=== PATIENT | female | born 1955 | race Caucasian/White ===

== ENCOUNTER 2023-06-04 08:00 | Outpatient (CLI) | payer MEDICARE, OTHER | END 2023-06-04 23:59 | disposition home or self-care (01) | LOC: LAB.N 08:00 | PROVIDERS: ATTEND Family Medicine | DX: J20.9 Acute bronchitis, unspecified (principal) ==

== ENCOUNTER 2023-06-04 08:45 | Outpatient (CLI) | payer MEDICARE, OTHER ==
--- NOTE | 2023-06-04 10:29 | XRAY Report ---
PROCEDURE: Chest 2 View X-Ray INDICATIONS: ACUTE BRONCHITIS TECHNIQUE: 2 views of the chest were acquired. COMPARISON: None. FINDINGS: Surgical changes and devices: Cervical fusion hardware, reversed left shoulder arthroplasty, lumbar fusion hardware. Lungs and pleura: No pleural effusions or pneumothorax. Lungs are clear. Right hemidiaphragm is e levated. Mediastinum: Mediastinal contours appear normal. Heart size is normal. Bones and chest wall: No suspicious bony lesions. Overlying soft tissues appear unremarkable. IMPRESSION: No acute cardiopulmonary process. Reviewed by: Billy Avelar MD on 06/04/2023 10:27 AM [facility] Approved by: Billy Avelar MD on 06/04/2023 10:27 AM [facility] Station ID: [id number]
== END 2023-06-04 09:00 | disposition home or self-care (01) ==
LOC: DI.N 08:45
PROVIDERS: ATTEND Family Medicine
DX: J20.9 Acute bronchitis, unspecified (principal)

== ENCOUNTER 2023-06-08 07:55 | Outpatient (CLI) | payer MEDICARE, OTHER | END 2023-06-08 07:56 | disposition critical access hospital (66) | LOC: EMS 07:55 | DX: R10.32 Left lower quadrant pain (principal); R09.89 Other specified symptoms and signs involving the circulatory and respiratory systems | CPT/HCPCS: A0425; A0429 ==

== ENCOUNTER 2023-06-08 08:13 | Inpatient (IN) | payer MEDICARE, OTHER ==
[2023-06-08] MEDS ORDERED: methylPREDNISolone SUCCINATE 125 MG/2 ML VIAL IVP STA (08:26)
[2023-06-08] MEDS ORDERED: IPRATROPIUM/ALBUTEROL 3 ML NEB INH STA ×2 (08:26→09:10)
[2023-06-08] MEDS ORDERED: LIDOCAINE PATCH 5% TOP STA (08:41)
[2023-06-08 08:44] LABS: BASOPHILS % (AUTO) 0.2 %; EOSINOPHILS % (AUTO) 0.9 %; HCT - HEMATOCRIT 36.8 % (37.0-47.0); LYMPHOCYTES # (AUTO) 0.6 10^3/uL (1.5-3.5); LYMPHOCYTES % (AUTO) 14.6 %; MEAN CORPUSCULAR HEMOGLOBIN 34.8 pg (27.0-31.0); MEAN CORPUSCULAR HGB CONC 32.6 g/dL (32.0-36.0); MEAN CORPUSCULAR VOLUME 106.7 fL (81.0-99.0); MEAN PLATELET VOLUME 8.8 fL (7.9-10.8); MONOCYTES # (AUTO) 0.2 10^3/uL (0.0-1.0); MONOCYTES % (AUTO) 4.2 %; NEUTROPHILS # (AUTO) 3.4 10^3/uL (1.5-6.6); NEUTROPHILS % (AUTO) 79.6 %; PLT - PLATELET COUNT 204 10^3/uL (130-450); RED BLOOD COUNT 3.45 10^6/uL (4.20-5.40); RED CELL DISTRIBUTION WIDTH 15.1 % (12.0-15.0); WHITE BLOOD COUNT 4.3 x10^3/uL (4.8-10.8)
--- NOTE | 2023-06-08 08:57 | ED Physician Documentation ---
History of Present Illness - Stated complaint Stated Complaint: L FLANK PX - Chief complaint Chief Complaint: Back Pain - History obtained from History obtained from: Patient - Additonal information Additional information: Patient is a 67-year-old female with a history of rheumatoid arthritis, hypertension, hyperlipidemia, multiple joint replacements presenting for evaluation of right SI joint pain that has been ongoing for the past few weeks. Patient states that she has been able to manage the pain with her pain medications at home. She does see pain management. However this morning the pain was worse and she was not able to get up out of bed. She was also seen at the walk-in clinic 4 days ago and diagnosed with influenza and bronchitis.She does use albuterol at home. She denies smoking. She does not use oxygen. She did take 2 of her Percocets this morning and does report the pain in her SI joint is better. It does radiate to the right thigh. She denies bowel or bladder incontinence. She finished antibiotics for a UTI 8 days ago. She is visiting here from [place]. She denies any recent falls or injuries. Denies saddle anesthesia. Does not take a blood thinner. EMS noted that she was hypoxic in the 80s which improved on oxygen via nasal cannula. Patient does report having a cough as well as feeling some shortness of air. No chest pain. No fevers. 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 : Chronic bladder infection HEENT: None Psych: None Musculoskeletal: Osteoarthritis, Rheumatoid arthritis, Chronic back pain Derm: None - Past Surgical History Past Surgical History: Yes General: Cholecystectomy Ortho: Hip replacement, Knee replacement, Shoulder arthroplasty, Spine surgery - Present Medications Home Medications: Ambulatory Orders Medication Instructions Recorded Confirmed Albuterol Sulf [Ventolin Hfa 1 - 2 puffs INH Q4HR PRN 06/08/23 06/08/23 Inhaler] Benzonatate 200 mg PO TID PRN 06/08/23 06/08/23 Cyclosporine [Restasis Multidose] 1 drops EACHEYE BID 06/08/23 06/08/23 DULoxetine [Cymbalta] 60 mg PO DAILY 06/08/23 06/08/23 Esomeprazole Magnesium [Nexium] 40 mg PO DAILY 06/08/23 06/08/23 Estradiol [Estrace] 1 applic VG DAILY 06/08/23 06/08/23 Gabapentin [Neurontin] 600 mg PO TID 06/08/23 06/08/23 Hydroxychloroquine [Plaquenil] 400 mg PO HS 06/08/23 06/08/23 Levothyroxine [Synthroid] 100 mcg PO QDAC 06/08/23 06/08/23 Losartan/Hydrochlorothiazide 1 each PO DAILY 06/08/23 06/08/23 [Hyzaar 100-25 Tablet] Ondansetron Odt [Zofran Odt] 4 mg TL Q8HR PRN 06/08/23 06/08/23 Oseltamivir [Tamiflu] 75 mg PO BID 06/08/23 06/08/23 Oxycodone HCl/Acetaminophen 1 each PO QID PRN 06/08/23 06/08/23 [Percocet 10-325 mg Tablet] Rosuvastatin Calcium [Crestor] 10 mg PO DAILY 06/08/23 06/08/23 Sulfamethox/Trimeth 800/160 1 tablet PO DAILY 06/08/23 [Bactrim Ds] azaTHIOprine [Azathioprine] 100 mg PO BID 06/08/23 06/08/23 predniSONE [Deltasone] 5 mg PO BID 06/08/23 06/08/23 - Allergies Allergies/Adverse Reactions: Allergies Allergy/AdvReac Type Severity Reaction Status Date / Time No Known Drug Allergies Allergy Verified 06/08/23 08:17 - Social History Does the pt smoke?: No Smoking Status: Never smoker Does the pt drink ETOH?: No Does the pt have substance abuse?: Yes Substance Use and Type: Marijuana - Immunizations Immunizations are current?: Yes PD ED PE NORMAL - General General: Alert and oriented X 3, No acute distress, Well developed/nourished - HEENT HEENT: Atraumatic, Moist mucous membranes, Pharynx benign - Neck Neck: Supple, no meningeal sign, No bony TTP - Cardiac Cardiac: RRR, Strong equal pulses - Respiratory Respiratory: No respiratory distress, Other (Diminished breath sounds bilaterally) - Abdomen Abdomen: Normal bowel sounds, Soft, Non tender, Non distended - Back Back: No spinal TTP, Other (Right paralumbar tenderness to palpation) - Derm Derm: Warm and dry - Extremities Extremities: No calf tenderness / cord, Other (Negative straight leg raise bilaterally; Good range of motion of bilateral hips, no leg shortening) - Neuro Neuro: Alert and oriented X 3, No motor deficit, No sensory deficit, Normal speech Results - Vitals Vitals: Vital Signs - 24 hr 06/08/23 06/08/23 06/08/23 08:20 08:32 08:51 Temperature 37.6 C Heart Rate 94 88 Respiratory 18 21 Rate Blood Pressure 115/75 O2 Saturation 95 82 L If not protocol : Oxygen Flow, liters/minute 06/08/23 06/08/23 09:38 10:22 Temperature 37.5 C Heart Rate 87 93 Respiratory 19 22 Rate Blood Pressure 126/80 O2 Saturation 91 L If not protocol 3 : Oxygen Flow, liters/minute Oxygen O2 Source Nasal cannula Oxygen Flow Rate 3 - Labs Labs: Laboratory Tests 06/08/23 06/08/23 06/08/23 08:35 08:35 08:35 WBC 4.3 L RBC 3.45 L Hgb 12.0 Hct 36.8 L MCV 106.7 H MCH 34.8 H MCHC 32.6 RDW 15.1 H Plt Count 204 MPV 8.8 Neut # (Auto) 3.4 Lymph # (Auto) 0.6 L [place] # (Auto) 0.2 Eos # (Auto) 0.0 Baso # (Auto) 0.0 Absolute Nucleated RBC 0.00 Nucleated RBC % 0.0 Sodium 140 Potassium 3.6 Chloride 101 Carbon Dioxide 32 Anion Gap 7.0 BUN 28 H Creatinine 1.2 Estimated GFR (MDRD) 45 L Glucose 97 Lactic Acid Calcium 9.1 Total Bilirubin 0.5 AST 24 ALT 19 Alkaline Phosphatase 32 L B-Natriuretic Peptide 17 Total Protein 6.0 L Albumin 3.8 Globulin 2.2 Albumin/Globulin Ratio 1.7 Lipase 17 Urine Color Urine Clarity Urine pH Ur Specific [place] Urine Protein Urine Glucose (UA) Urine Ketones Urine Occult Blood Urine Nitrite Urine Bilirubin Urine Urobilinogen Ur Leukocyte Esterase Urine RBC Urine WBC Ur Squamous Epith Cells Urine Bacteria Ur Microscopic Review Urine Culture Comments Nasal Adenovirus (PCR) Nasal B. parapertussis DNA (PCR) Nasal Coronavir 229E PCR Nasal Coronavir HKU1 PCR Nasal Coronavir NL63 PCR Nasal Coronavir OC43 PCR Nasal Enterovir/Rhinovir PCR Nasal Influ A H1 2009 PCR Nasal Influenza B PCR Nasal Parainfluen 1 PCR Nasal Parainfluen 2 PCR Nasal Parainfluen 3 PCR Nasal Parainfluen 4 PCR Nasal RSV (PCR) Nasal B.pertussis DNA PCR Nasal C.pneumoniae (PCR) Doug Human Metapneumo PCR Nasal M.pneumoniae (PCR) Nasal SARS-CoV-2 (PCR) 06/08/23 06/08/23 06/08/23 08:37 09:26 10:20 WBC RBC Hgb Hct MCV MCH MCHC RDW Plt Count MPV Neut # (Auto) Lymph # (Auto) [place] # (Auto) Eos # (Auto) Baso # (Auto) Absolute Nucleated RBC Nucleated RBC % Sodium Potassium Chloride Carbon Dioxide Anion Gap BUN Creatinine Estimated GFR (MDRD) Glucose Lactic Acid 1.4 Calcium Total Bilirubin AST ALT Alkaline Phosphatase B-Natriuretic Peptide Total Protein Albumin Globulin Albumin/Globulin Ratio Lipase Urine Color YELLOW Urine Clarity CLEAR Urine pH 6.5 Ur Specific [place] 1.025 Urine Protein NEGATIVE Urine Glucose (UA) NEGATIVE Urine Ketones NEGATIVE Urine Occult Blood NEGATIVE Urine Nitrite POSITIVE H Urine Bilirubin NEGATIVE Urine Urobilinogen 0.2 (NORMAL) Ur Leukocyte Esterase NEGATIVE Urine RBC None Seen Urine WBC 0-3 Ur Squamous Epith Cells RARE Squamous Urine Bacteria Many H Ur Microscopic Review INDICATED Urine Culture Comments INDICATED Nasal Adenovirus (PCR) NOT DETECTED Nasal B. parapertussis DNA (PCR) NOT DETECTED Nasal Coronavir 229E PCR NOT DETECTED Nasal Coronavir HKU1 PCR NOT DETECTED Nasal Coronavir NL63 PCR NOT DETECTED Nasal Coronavir OC43 PCR NOT DETECTED Nasal Enterovir/Rhinovir PCR NOT DETECTED Nasal Influ A H1 2009 PCR DETECTED A Nasal Influenza B PCR NOT DETECTED Nasal Parainfluen 1 PCR NOT DETECTED Nasal Parainfluen 2 PCR NOT DETECTED Nasal Parainfluen 3 PCR NOT DETECTED Nasal Parainfluen 4 PCR NOT DETECTED Nasal RSV (PCR) NOT DETECTED Nasal B.pertussis DNA PCR NOT DETECTED Nasal C.pneumoniae (PCR) NOT DETECTED Doug Human Metapneumo PCR NOT DETECTED Nasal M.pneumoniae (PCR) NOT DETECTED Nasal SARS-CoV-2 (PCR) NOT DETECTED PD Medical Decision Making - ED course Complexity details: reviewed results, re-evaluated patient, d/w patient ED course: Patient is a 67-year-old female with a history of COPD presenting for evaluation of recent wheezing. She also is complaining of SI joint pain. Has chronic joint pains all over her body and sees pain management at home in [place]. She recently tested positive for influenza and has been laying in bed more often. She did take her home Percocet and does feel better this morning. She has good range of motion at her hips and I do not see signs of fracture or dislocation. No falls. She however is noted to be hypoxic. She is wheezing. CBC, chemistry, chest x-ray, BNP were obtained and reviewed and without significant findings. Respiratory swab is still positive for influenza A. I do not see infiltrates on her chest x-ray. Patient received Solu-Medrol as well as 3 neb treatments and remained hypoxic on room air. Therefore I did discuss with admitting hospitalist for admission given ongoing hypoxia in the setting of COPD exacerbation and influenza.No chest pain to suggest ACS. 1053 - Discussed with admitting hospitalist, Dr. Loera Departure - Departure Disposition: 65 [facility] DC/Xfer Clinical Impression: Influenza A (H1N1), Hypoxia, COPD exacerbation Condition: Good Discharge Date/Time: 06/08/23 12:43
[2023-06-08 09:09] LABS: ALBUMIN 3.8 g/dL (3.2-5.5); ALBUMIN/GLOBULIN RATIO 1.7 (1.0-2.2); BILIRUBIN,TOTAL 0.5 mg/dL (0.2-1.0); CALCIUM 9.1 mg/dL (8.5-10.3); CREATININE 1.2 mg/dL (0.6-1.3); POTASSIUM 3.6 mmol/L (3.5-4.5)
[2023-06-08] MEDS ORDERED: ALBUTEROL NEB 2.5 MG/3 ML INH STA (09:11)
--- NOTE | 2023-06-08 09:14 | XRAY Report ---
PROCEDURE: Chest 1 View X-Ray INDICATIONS: SOA TECHNIQUE: One view of the chest was acquired. COMPARISON: 06/04/2023. FINDINGS: Surgical changes and devices: Cervical fusion hardware, total reverse left shoulder arthroplasty. Lungs and pleura: No pleural effusions or pneumothorax. Elevation of right hemidiaphragm. Lungs are clear. Mediastinum: Mediastinal contours appear normal. Heart size is normal. Bones and chest wall: No suspicious bony lesions. Overlying soft tissues appear unremarkable. IMPRESSION: No acute pulmonary process. Reviewed by: Billy Avelar MD on 06/08/2023 9:13 AM PST Approved by: Billy Avelar MD on 06/08/2023 9:13 AM PST Station ID: [id number]
[2023-06-08 09:32] LABS: BILIRUBIN,URINE NEGATIVE (NEGATIVE); GLUCOSE, URINE (UA) NEGATIVE (NEGATIVE); KETONES,URINE (UA) NEGATIVE (NEGATIVE); LEUKOCYTE ESTERASE, URINE NEGATIVE (NEGATIVE); NITRITE,URINE POSITIVE (NEGATIVE); OCCULT BLOOD,URINE NEGATIVE (NEGATIVE); PH,URINE 6.5 PH (5.0-7.5); PROTEIN,URINE NEGATIVE (NEGATIVE); UROBILINOGEN,URINE 0.2 (NORMAL) E.U./dL (NORMAL)
[2023-06-08 09:33] LABS: CLARITY,URINE CLEAR (CLEAR)
[2023-06-08 09:39] LABS: RBC,URINE None Seen /HPF (0-5); WBC,URINE 0-3 /HPF (0-5)
[2023-06-08 09:40] LABS: BACTERIA,URINE Many /HPF (None Seen); SQUAMOUS EPITHELIAL CELL,UR RARE Squamous (<= Few)
[2023-06-08 11:33] LABS: CORONAVIRUS 229E-RESP PCR NOT DETECTED; CORONAVIRUS HKU1-RESP PCR NOT DETECTED; CORONAVIRUS NL63-RESP PCR NOT DETECTED; CORONAVIRUS OC43-RESP PCR NOT DETECTED; SARS-CoV-2 -RESP PCR PANEL NOT DETECTED
[2023-06-08 11:34] LABS: B. PARAPERTUSSIS- RESP PCR PAN NOT DETECTED; B. PERTUSSIS- RESP PCR PANEL NOT DETECTED; C. PNEUMONIAE- RESP PCR PANEL NOT DETECTED; HUMAN METAPNEUMOVIRUS NOT DETECTED; INFLUENZA A H1 2009- RESP PCR DETECTED; INFLUENZA B - RESP PCR PANEL NOT DETECTED; M. PNEUMONIAE- RESP PCR PANEL NOT DETECTED; PARAINFLUENZA VIRUS 1 NOT DETECTED; PARAINFLUENZA VIRUS 2 NOT DETECTED; PARAINFLUENZA VIRUS 3 NOT DETECTED; PARAINFLUENZA VIRUS 4 NOT DETECTED; RHINOVIRUS/ENTEROVIRUS NOT DETECTED; RSV- RESP PCR PANEL NOT DETECTED
[2023-06-08] MEDS ORDERED: ACETAMINOPHEN 325 MG TABLET PO PRN (11:34)
[2023-06-08] MEDS ORDERED: SODIUM CHLORIDE FLUSH 0.9% 10 ML SYRINGE IVP PRN (11:34)
[2023-06-08] MEDS ORDERED: ONDANSETRON 4 MG/2 ML VIAL IVP PRN (11:34)
[2023-06-08] MEDS ORDERED: IPRATROPIUM/ALBUTEROL 3 ML NEB INH PRN (11:37)
[2023-06-08] MEDS ORDERED: ONDANSETRON ODT 4 MG TABLET TL PRN (11:38)
--- NOTE | 2023-06-08 11:43 | HISTORY & PHYSICAL EXAMINATION ---
Chief Complaint - Chief Complaint Chief Complaint: Hip pain worse than usual so could not get out of bed, short of breath History of Present Illness - Admitted From Admitted From:: ED - History Obtained From History obtained from: ED provider - History of Present Illness HPI Comment/Other: This is a 67-year-old female who is visiting here with her from [place]. Four days ago she went to the walk-in clinic here complaining of shortness of breath and a cough and was diagnosed with influenza, was discharged on Tamiflu. The patient has a history of rheumatoid arthritis and takes prednisone daily, and also has COPD/asthma and takes inhalers and has a history of HTN and hypothyroidism. Patient is status post multiple orthopedic surgeries and has chronic SI joint pain for which she was about to get a steroid injection and also needs Percocet. This morning the patient said her usual L hip pain was worse than normal and she could not get out of bed therefore she called EMS. She did take her own Percocet. EMS documented her to be desaturating at 88% on room air. On presentation to the ER here she was wheezing. She received 3 nebulizer treatments. She was started on O2 for documented hypoxia of 82% on room air in our ER. Chest x-ray showed no infiltrates. Her respiratory PCR showed neg for COVID but continues to show (+) Influenza. Her white blood count is low at 4.3, lactic acid normal, urinalysis is abnormal with positive nitrites and many bacteria (the patient completed an 1 week course of antibiotics for UTI recently). She denies a fever or dysuria. She is about to see a Urologist back home to determine why she gets frequent UTIs. She currently has mouth ulcers which she says happens when she has a flareup of her RA. The ED provider spoke to me about this patient. She will be admitted to manage acute respiratory failure with hypoxia from Influenza, bronchitis, and COPD exacerbation. . I spoke to her about her wishes for CODE BLUE status and she wants to be a Full Code. 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 Social History Notes: She is currently visiting here from [place]. She never smoked cigarettes. She smokes pot approximately twice a week. She drinks no alcohol. 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 - Substance History Use: Uses substance without health or social issues: Cannabis Meds/Allgy - Home Medications Home Medications: Ambulatory Orders Medication Instructions Recorded Confirmed Albuterol Sulf [Ventolin Hfa 1 - 2 puffs INH Q4HR PRN 06/08/23 06/08/23 Inhaler] Benzonatate 200 mg PO TID PRN 06/08/23 06/08/23 Cyclosporine [Restasis Multidose] 1 drops EACHEYE BID 06/08/23 06/08/23 DULoxetine [Cymbalta] 60 mg PO DAILY 06/08/23 06/08/23 Esomeprazole Magnesium [Nexium] 40 mg PO DAILY 06/08/23 06/08/23 Estradiol [Estrace] 1 applic VG DAILY 06/08/23 06/08/23 Gabapentin [Neurontin] 600 mg PO TID 06/08/23 06/08/23 Hydroxychloroquine [Plaquenil] 400 mg PO HS 06/08/23 06/08/23 Levothyroxine [Synthroid] 100 mcg PO QDAC 06/08/23 06/08/23 Losartan/Hydrochlorothiazide 1 each PO DAILY 06/08/23 06/08/23 [Hyzaar 100-25 Tablet] Ondansetron Odt [Zofran Odt] 4 mg TL Q8HR PRN 06/08/23 06/08/23 Oseltamivir [Tamiflu] 75 mg PO BID 06/08/23 06/08/23 Oxycodone HCl/Acetaminophen 1 each PO QID PRN 06/08/23 06/08/23 [Percocet 10-325 mg Tablet] Rosuvastatin Calcium [Crestor] 10 mg PO DAILY 06/08/23 06/08/23 Sulfamethox/Trimeth 800/160 1 tablet PO DAILY 06/08/23 [Bactrim Ds] azaTHIOprine [Azathioprine] 100 mg PO BID 06/08/23 06/08/23 predniSONE [Deltasone] 5 mg PO BID 06/08/23 06/08/23 - Allergies Allergies/Adverse Reactions: Allergies Allergy/AdvReac Type Severity Reaction Status Date / Time No Known Drug Allergies Allergy Verified 06/08/23 08:17 Review of Systems - Ears, Nose & Throat Ears, Nose & Throat: reports: Other (Ulcers of inside lower lip) - Respiratory Respiratory: reports: Cough, SOB with exertion - Musculoskeletal Musculoskeletal: reports: Stiffness, Joint pain - All Other Systems All Other Systems: reports: Reviewed and negative Exam - Vital Signs Reviewed Vital Signs: Yes Vital Signs: Vital Signs x48h Temp Pulse Resp BP Pulse Ox O2 Flow Rate 06/08/23 10:22 37.5 C 93 22 126/80 91 L 3 06/08/23 09:38 87 19 06/08/23 08:51 88 21 06/08/23 08:32 82 L 06/08/23 08:20 37.6 C 94 18 115/75 95 - Physical Exam General Appearance: positive: No acute distress, Other (Cushingoid appearance. Has alopecia.) Eyes Bilateral: positive: Normal inspection, No lid inflammation ENT: positive: Other (Tiny aphthous ulcer of the right lower inner lip. 2 healed ulcers on each lateral side of the tongue. Is wearing O2 n.c.) Neck: positive: Nml inspection, No JVD Respiratory: positive: Rhonchi Cardiovascular: positive: Regular rate & rhythm (Distant heart sounds due to obesity and COPD) Abdomen: positive: Non-tender, Nml bowel sounds, Other (Obese with pannus) Skin: positive: No rash, Warm, Dry Extremities: positive: Non-tender, No pedal edema Neurologic/Psychiatric: positive: Oriented x3 Conclusion/Plan - Problem List (1) Acute respiratory failure with hypoxia Conclusion/Plan: This is likely from a combination of influenza, bronchitis and a COPD exacerbation Plan: Continue with supplemental O2 to keep saturations over 90% Treat the underlying influenza and COPD exacerbation (2) Influenza Conclusion/Plan: Her first positive test was 4 days ago and she remains positive for influenza today Plan: Respiratory isolation will be ordered Give symptomatic treatment (3) COPD exacerbation Conclusion/Plan: Patient does use inhalers at home, but is not on home O2 She was wheezing on presentation, has already received 3 nebulizers in the ER, a nd Solu-Medrol 125 mg IV x1. On exam she is tight and has rhonchi currently Plan: We will continue with supplemental O2 keeping saturations 89% or above DuoNeb scheduled 4 times daily and every 4 hours as needed We will give Solu-Medrol 80 mg IV 3 times daily Also start Pulmicort twice daily via nebulizer Start Mucinex scheduled 600 twice daily (4) UTI (urinary tract infection) Conclusion/Plan: The patient reported she gets frequent UTIs The patient recently completed a 1 week course of antibiotics for UTI Her UA unfortunately is abnormal with positive nitrates and many WBC and bacteria consistent with a UTI Plan: Begin empiric IV ceftriaxone daily Obtain blood cx if she spikes a fever Await urine cx results to tailor antibx She knows to see a urologist locally after discharge (5) Rheumatoid arthritis Conclusion/Plan: As per history. The patient takes Plaquenil, azathioprine and prednisone daily. I suspect that her worsened left hip (SI joint) pain may be from a flareup, given the fact that she has aphthous ulcers of the mouth which happen when she gets an RA flareup, she reported. Plan: She will be on a high-dose of steroids for treating her COPD, which may help the SI joint pain I will request PT and OT evaluations I will continue her Plaquenil and Azothioprine patient's own med (6) Hip pain, chronic Conclusion/Plan: She has chronic SI joint pain, it responded to her usual Percocet. Her exam in the ER was negative for straight leg raising and she has no saddle anesthesia Plan: She will be on a high-dose of steroids for treating her COPD, which may help the SI joint pain I will continue her usual pain meds while she is here Will request PT and OT evals (7) Hypothyroidism Conclusion/Plan: Plan: We will check her TSH to assure her dose is adequate Continue her Synthroid treatment (8) HTN (hypertension) Conclusion/Plan: Plan: I will continue her usual HCTZ and her Losartan - Lab Results Fish Bones: 06/08/23 08:35 06/08/23 08:35 - Diagnostic Imaging Results Diagnostic Imaging Results: positive: Final report reviewed - Other Other Results/Comments: Attestation: The patient is expected to be hospitalized for greater than 2 midnights and is expected to be discharged or transferred to another facility within 96 hours: Yes
[2023-06-08] MEDS: cefTRIAXone 1 GM in SODIUM CHLORIDE 0.9% MINIBAG 100 ML IV SCH (12:50)
[2023-06-08] MEDS: GABAPENTIN 300 MG CAPSULE PO SCH ×2 (13:53→21:32)
[2023-06-08] MEDS: methylPREDNISolone SUCCINATE 40 MG/ML VIAL IVP SCH ×2 (13:53→21:32)
[2023-06-08] MEDS: IPRATROPIUM/ALBUTEROL 3 ML NEB INH SCH ×2 (14:58→20:40)
[2023-06-08] MEDS: PANTOPRAZOLE 40 MG TABLET PO SCH (16:23)
[2023-06-08] MEDS: SODIUM CHLORIDE FLUSH 0.9% 10 ML SYRINGE IVP SCH (16:23)
--- NOTE | 2023-06-08 16:28 | PHARMACY PROGRESS NOTE ---
- Best Possible Medication History Admit Date and Time: 06/08/23 1134 Processed by: Pharmacy Medication History completed: Yes Patient Interview: Completed Secondary Source(s): Pharmacy records, Insurance records As the person ultimately responsible for medication therapy, providers are able to order a medication from an existing home medication list in [facility] via the "Reconcile Routine" prior to Confirmation of that medication by desktop support technician. Such practice is discouraged except when the physician, in their clinical judgment, deems that a medical need exists for a medication without regard to previous use.
[2023-06-08] MEDS: oxyCODONE 5 MG TABLET PO PRN (18:33)
[2023-06-08] MEDS: ACETAMINOPHEN 325 MG TABLET PO PRN (18:34)
[2023-06-08] MEDS: BUDESONIDE 0.5 MG/2 ML NEB INH SCH (20:40)
[2023-06-08] MEDS: Cyclosporine [Restasis Multidose] EACHEYE SCH (21:00)
[2023-06-08] MEDS: OSELTAMIVIR 75 MG CAPSULE PO SCH (21:32)
[2023-06-08] MEDS: guaiFENesin 600 MG TABLET PO SCH (21:32)
[2023-06-08] MEDS: HYDROXYCHLOROQUINE 200 MG TABLET PO SCH (21:32)
[2023-06-09] MEDS: oxyCODONE 5 MG TABLET PO PRN ×4 (00:42→22:02)
[2023-06-09] MEDS: ACETAMINOPHEN 325 MG TABLET PO PRN ×4 (00:43→22:02)
[2023-06-09] MEDS: SODIUM CHLORIDE FLUSH 0.9% 10 ML SYRINGE IVP SCH ×3 (00:46→16:38)
[2023-06-09 06:01] LABS: BASOPHILS % (AUTO) 0.2 %; HCT - HEMATOCRIT 34.9 % (37.0-47.0); HGB - HEMOGLOBIN 11.5 g/dL (12.0-16.0); LYMPHOCYTES # (AUTO) 0.5 10^3/uL (1.5-3.5); LYMPHOCYTES % (AUTO) 9.5 %; MEAN CORPUSCULAR HEMOGLOBIN 34.8 pg (27.0-31.0); MEAN CORPUSCULAR VOLUME 105.8 fL (81.0-99.0); MONOCYTES # (AUTO) 0.1 10^3/uL (0.0-1.0); MONOCYTES % (AUTO) 2.5 %; NEUTROPHILS # (AUTO) 4.2 10^3/uL (1.5-6.6); NEUTROPHILS % (AUTO) 87.4 %; PLT - PLATELET COUNT 194 10^3/uL (130-450); RED CELL DISTRIBUTION WIDTH 14.7 % (12.0-15.0); WHITE BLOOD COUNT 4.8 x10^3/uL (4.8-10.8)
[2023-06-09] MEDS: GABAPENTIN 300 MG CAPSULE PO SCH ×3 (06:05→21:48)
[2023-06-09] MEDS: methylPREDNISolone SUCCINATE 40 MG/ML VIAL IVP SCH ×3 (06:06→21:48)
[2023-06-09] MEDS: PANTOPRAZOLE 40 MG TABLET PO SCH ×2 (06:06→16:36)
[2023-06-09] MEDS: LEVOTHYROXINE 100 MCG TABLET PO SCH (06:06)
[2023-06-09 06:25] LABS: CALCIUM 9.1 mg/dL (8.5-10.3); CREATININE 0.9 mg/dL (0.6-1.3); MAGNESIUM 1.9 mg/dL (1.7-2.3); PHOSPHORUS 3.4 mg/dL (2.5-5.0); POTASSIUM 3.9 mmol/L (3.5-4.5)
[2023-06-09] MEDS: IPRATROPIUM/ALBUTEROL 3 ML NEB INH SCH ×4 (07:51→15:18)
[2023-06-09] MEDS: BUDESONIDE 0.5 MG/2 ML NEB INH SCH ×2 (07:51→08:15)
[2023-06-09] MEDS: DULoxetine 60 MG CAPSULE PO SCH (08:12)
[2023-06-09] MEDS: guaiFENesin 600 MG TABLET PO SCH ×2 (08:12→21:48)
[2023-06-09] MEDS: hydroCHLOROthiazide 25 MG TABLET PO SCH (08:12)
[2023-06-09] MEDS: LOSARTAN 50 MG TABLET PO SCH (08:12)
[2023-06-09] MEDS: OSELTAMIVIR 75 MG CAPSULE PO SCH ×2 (08:13→21:48)
[2023-06-09] MEDS: cefTRIAXone 1 GM in SODIUM CHLORIDE 0.9% MINIBAG 100 ML IV SCH (09:14)
[2023-06-09] MEDS: ENOXAPARIN 40 MG/0.4 ML SYRINGE SUBQ SCH (09:17)
[2023-06-09] MEDS: LACTOBACILLUS RHAMNOSUS GG CAPSULE PO SCH (10:27)
[2023-06-09] MEDS: Cyclosporine [Restasis Multidose] EACHEYE SCH ×2 (10:27→21:47)
--- NOTE | 2023-06-09 15:06 | PROVIDER PROGRESS NOTE ---
Assessment/Plan - Problem List (1) Acute respiratory failure with hypoxia Assessment/Plan: This is likely from a combination of influenza, bronchitis and a COPD exacerbatio. Her O2 setting has been able to be decreased slightly. Plan: Continue with supplemental O2 to keep saturations over 90% Treat the underlying influenza and COPD exacerbation (2) Influenza Conclusion/Plan: Her first positive test was 4 days ago and she remains positive for influenza today Plan: Respiratory isolation to cont Cont Tamiflu (3) COPD exacerbation Conclusion/Plan: Patient does use inhalers at home, but is not on home O2 She was wheezing on presentation, despite 3 nebulizers in the ER, and Solu- Medrol 125 mg IV x1. Today there is less wheezing but she is still tight with poor air movement on exam Plan: We will continue with supplemental O2 keeping saturations 89% or above DuoNeb scheduled 4 times daily and every 4 hours as needed Will start tapering Solu-Medrol 80 mg IV TID to 40 mg iv TID Cont Pulmicort twice daily via nebulizer Cont Mucinex scheduled 600 twice daily (4) UTI (urinary tract infection) Conclusion/Plan: The patient reported she gets frequent UTIs The patient recently completed a 1 week course of antibiotics for UTI Her UA unfortunately is abnormal with positive nitrates and many WBC and bacteria consistent with a UTI Plan: Cont empiric IV ceftriaxone daily Obtain blood cx if she spikes a fever Await urine cx results to tailor antibx She knows to see a urologist locally after discharge (5) Rheumatoid arthritis Conclusion/Plan: As per history. The patient takes Plaquenil, azathioprine and prednisone daily. I suspect that her worsened left hip (SI joint) pain may be from a flareup, given the fact that she has aphthous ulcers of the mouth which happen when she gets an RA flareup, she reported. Plan: Cont high-dose of steroids for treating her COPD, which may help the SI joint pain I will continue her Plaquenil and Azothioprine, as patient's own med PT evaluation ordered (6) Hip pain, chronic Conclusion/Plan: She has chronic SI joint pain, it responded to her usual Percocet. Her exam in the ER was negative for straight leg raising and she has no saddle anesthesia Plan: She will be on a high-dose of steroids for treating her COPD, which may help the SI joint pain I will continue her usual pain and RA meds while she is here PT evaluation ordered (7) Hypothyroidism Conclusion/Plan: Her TSH result is pending Plan: Continue her Synthroid treatment (8) HTN (hypertension) Conclusion/Plan: Plan: Continue her usual HCTZ and her Losartan - Current Meds Current Meds: Current Medications Generic Name Dose Route Start Last Admin Trade Name Freq PRN Reason Stop Dose Admin Acetaminophen 325 mg 06/08/23 12:36 06/09/23 09:25 Acetaminophen 325 Mg Tablet PO 325 mg QID PRN Administration PAIN 5-7 Albuterol/Ipratropium 3 ml 06/08/23 15:00 06/09/23 11:39 Ipratropium/Albuterol 3 Ml Neb INH 3 ml RTQID JAQUAN Administration Albuterol/Ipratropium 3 ml 06/08/23 11:37 06/09/23 00:40 Ipratropium/Albuterol 3 Ml Neb INH 3 ml RTQID PRN Administration Shortness of Air/Wheezing Budesonide 0.5 mg 06/08/23 19:00 06/09/23 08:15 Budesonide 0.5 Mg/2 Ml Neb INH 0.5 mg RTBID JAQUAN Administration Duloxetine HCl 60 mg 06/09/23 09:00 06/09/23 08:12 Duloxetine 60 Mg Capsule PO 60 mg DAILY JAQUAN Administration Enoxaparin Sodium 40 mg 06/09/23 09:00 06/09/23 09:17 Enoxaparin 40 Mg/0.4 Ml Syringe SUBQ 40 mg DAILY JAQUAN Administration Gabapentin 600 mg 06/08/23 14:00 06/09/23 14:06 Gabapentin 300 Mg Capsule PO 600 mg TID JAQUAN Administration Guaifenesin 600 mg 06/08/23 21:00 06/09/23 08:12 Guaifenesin 600 Mg Tablet PO 600 mg BID JAQUAN Administration Hydrochlorothiazide 25 mg 06/09/23 09:00 06/09/23 08:12 Hydrochlorothiazide 25 Mg Tablet PO 25 mg DAILY JAQUAN Administration Hydroxychloroquine Sulfate 400 mg 06/08/23 21:00 06/08/23 21:32 Hydroxychloroquine 200 Mg Tablet PO 400 mg HS JAQUAN Administration Ceftriaxone Sodium 1 gm/ 100 mls @ 200 mls/hr 06/08/23 12:00 06/09/23 09:45 Sodium Chloride IV Infused DAILY JAQUAN Infusion Lactobacillus Rhamnosus 1 cap 06/09/23 10:00 06/09/23 10:27 Lactobacillus Rhamnosus Gg Capsule PO 1 cap DAILY JAQUAN Administration Levothyroxine Sodium 100 mcg 06/09/23 07:00 06/09/23 06:06 Levothyroxine 100 Mcg Tablet PO 100 mcg QDAC JAQUAN Administration Losartan Potassium 100 mg 06/09/23 09:00 06/09/23 08:12 Losartan 50 Mg Tablet PO 100 mg DAILY JAQUAN Administration Methylprednisolone 80 mg 06/08/23 14:00 06/09/23 14:06 Methylprednisolone Succinate 40 Mg/Ml Vial IVP 80 mg TID JAQUAN Administration Oseltamivir Phosphate 75 mg 06/08/23 21:00 06/09/23 08:13 Oseltamivir 75 Mg Capsule PO 06/13/23 20:59 75 mg BID JAQUAN Administration Oxycodone HCl 10 mg 06/08/23 12:34 06/09/23 09:24 Oxycodone 5 Mg Tablet PO 10 mg QID PRN Administration PAIN 5-7 Pantoprazole Sodium 40 mg 06/08/23 16:00 06/09/23 06:06 Pantoprazole 40 Mg Tablet PO 40 mg BIDAC JAQUAN Administration Cyclosporine [ 1 each 06/08/23 21:00 06/09/23 10:27 Restasis Multidose] EACHEYE 1 each BID JAQUAN Administration Azathioprine 50 Mg 2 each 06/08/23 21:00 06/09/23 10:27 PO 2 each BID JAQUAN Administration Sodium Chloride 10 ml 06/08/23 17:00 06/09/23 09:18 Sodium Chloride Flush 0.9% 10 Ml Syringe IVP 10 ml 0100,0900,1700 JAQUAN Administration - Lab Result Fish Bone Diagrams: 06/09/23 05:43 06/09/23 05:43 - Additional Planning My Orders: My Active Orders 06/08/23 15:00 Ipratropium/Albuterol [Duoneb] 3 ml INH RTQID 06/08/23 15:19 RT [Nebulizer/MDI Tx.] [RC] .qid 06/08/23 16:00 Pantoprazole [Protonix] 40 mg PO BIDAC 06/08/23 Dinner Regular Diet [DIET] 06/08/23 17:00 Sodium Chloride Flush 0.9% [Normal Saline Flush 0.9%] 10 ml IVP 0100,0900,1700 06/08/23 19:00 Budesonide [Pulmicort] 0.5 mg INH RTBID 06/08/23 21:00 Hydroxychloroquine [Plaquenil] 400 mg PO HS Oseltamivir [Tamiflu] 75 mg PO BID Patient Own Med 1 each EACHEYE BID Patient Own Med 2 each PO BID guaiFENesin [Mucinex] 600 mg PO BID 06/09/23 Evaluate and Treat PT [PT] Routine 06/09/23 07:00 Levothyroxine [Synthroid] 100 mcg PO QDAC 06/09/23 09:00 DULoxetine [Cymbalta] 60 mg PO DAILY Enoxaparin [Lovenox] 40 mg SUBQ DAILY Losartan [Cozaar] 100 mg PO DAILY hydroCHLOROthiazide [Hydrodiuril] 25 mg PO DAILY 06/09/23 10:00 Lactobacillus Rhamnosus GG [Culturelle] 1 cap PO DAILY 06/09/23 21:00 Patient Own Med 1 each VG MoWeFr Subjective - Subjective Patient Reports: Feeling Better (Less short of breath at rest, but still feels wheezing. Cough is less but is very short of breath with activity yet.) Objective Vital Signs: Vital Signs - 24 hr 06/08/23 06/08/23 06/08/23 15:20 16:00 20:40 Temperature 36.1 C L Heart Rate 84 Heart Rate [ 88 Brachial] Respiratory 20 18 20 Rate Blood Pressure 132/67 H [Left Brachial artery] O2 Saturation 92 If not protocol 3 3 3 : Oxygen Flow, liters/minute 06/08/23 06/09/23 06/09/23 23:37 00:40 05:54 Temperature 36.7 C Heart Rate Heart Rate [ 85 Brachial] Respiratory 19 20 Rate Blood Pressure 152/91 H [Left Brachial artery] O2 Saturation 93 95 If not protocol 3 3 3 : Oxygen Flow, liters/minute 06/09/23 06/09/23 08:19 11:41 Temperature 36.4 C L Heart Rate 74 87 Heart Rate [ 88 Brachial] Respiratory 22 16 Rate Blood Pressure 152/94 H [Left Brachial artery] O2 Saturation 92 If not protocol : Oxygen Flow, liters/minute Oxygen O2 Source Room air Oxygen Flow Rate 3 I&O (Last 24 Hrs): Intake and Output Totals x24h 06/07/23 06/08/23 06/09/23 23:59 23:59 23:59 Intake Total 930 1060 Output Total 350 Balance 580 1060 General: Alert, Oriented x3 HEENT: Mucous membr. moist/pink, Other (Cushingoid appearing. Alopecia.) Neck: Supple Neuro: Alert, Non Focal Cardiovascular: Regular rate Respiratory: Wheezes (Scattered wheezing, tight air mvm) Abdomen: Soft, No tenderness Extremities: No clubbing, No edema - Results Results: Laboratory Results WBC 4.8 x10^3/uL (4.8-10.8) 06/09/23 05:43 RBC 3.30 10^6/uL (4.20-5.40) L 06/09/23 05:43 Hgb 11.5 g/dL (12.0-16.0) L 06/09/23 05:43 Hct 34.9 % (37.0-47.0) L 06/09/23 05:43 MCV 105.8 fL (81.0-99.0) H 06/09/23 05:43 MCH 34.8 pg (27.0-31.0) H 06/09/23 05:43 MCHC 33.0 g/dL (32.0-36.0) 06/09/23 05:43 RDW 14.7 % (12.0-15.0) 06/09/23 05:43 Plt Count 194 10^3/uL (130-450) 06/09/23 05:43 MPV 9.0 fL (7.9-10.8) 06/09/23 05:43 Neut # (Auto) 4.2 10^3/uL (1.5-6.6) 06/09/23 05:43 Lymph # (Auto) 0.5 10^3/uL (1.5-3.5) L 06/09/23 05:43 [place] # (Auto) 0.1 10^3/uL (0.0-1.0) 06/09/23 05:43 Eos # (Auto) 0.0 10^3/uL (0.0-0.7) 06/09/23 05:43 Baso # (Auto) 0.0 10^3/uL (0.0-0.1) 06/09/23 05:43 Absolute Nucleated RBC 0.00 x10^3/uL 06/09/23 05:43 Nucleated RBC % 0.0 /100WBC 06/09/23 05:43 Sodium 140 mmol/L (135-145) 06/09/23 05:43 Potassium 3.9 mmol/L (3.5-4.5) 06/09/23 05:43 Chloride 101 mmol/L (101-111) 06/09/23 05:43 Carbon Dioxide 32 mmol/L (21-32) 06/09/23 05:43 Anion Gap 7.0 (6-13) 06/09/23 05:43 BUN 24 mg/dL (6-20) H 06/09/23 05:43 Creatinine 0.9 mg/dL (0.6-1.3) 06/09/23 05:43 Estimated GFR (MDRD) 62 (>89) L 06/09/23 05:43 Glucose 154 mg/dL (74-104) H 06/09/23 05:43 Lactic Acid 1.4 mmol/L (0.5-2.2) 06/08/23 08:37 Calcium 9.1 mg/dL (8.5-10.3) 06/09/23 05:43 Phosphorus 3.4 mg/dL (2.5-5.0) 06/09/23 05:43 Magnesium 1.9 mg/dL (1.7-2.3) 06/09/23 05:43 Total Bilirubin 0.5 mg/dL (0.2-1.0) 06/08/23 08:35 AST 24 IU/L (10-42) 06/08/23 08:35 ALT 19 IU/L (10-60) 06/08/23 08:35 Alkaline Phosphatase 32 IU/L (42-121) L 06/08/23 08:35 B-Natriuretic Peptide 17 pg/mL (5-100) 06/08/23 08:35 Total Protein 6.0 g/dL (6.4-8.9) L 06/08/23 08:35 Albumin 3.8 g/dL (3.2-5.5) 06/08/23 08:35 Globulin 2.2 g/dL (2.1-4.2) 06/08/23 08:35 Albumin/Globulin Ratio 1.7 (1.0-2.2) 06/08/23 08:35 Lipase 17 U/L (11-82) 06/08/23 08:35 Vitamin B12 1067 pg/mL (180-914) H 06/09/23 05:43 Folate 17.0 ng/mL (5.90 - >24.8) 06/09/23 05:43 Urine Color YELLOW 06/08/23 09:26 Urine Clarity CLEAR (CLEAR) 06/08/23 09:26 Urine pH 6.5 PH (5.0-7.5) 06/08/23 09:26 Ur Specific [place] 1.025 (1.002-1.030) 06/08/23 09:26 Urine Protein NEGATIVE mg/dL (NEGATIVE) 06/08/23 09:26 Urine Glucose (UA) NEGATIVE mg/dL (NEGATIVE) 06/08/23 09:26 Urine Ketones NEGATIVE mg/dL (NEGATIVE) 06/08/23 09:26 Urine Occult Blood NEGATIVE (NEGATIVE) 06/08/23 09:26 Urine Nitrite POSITIVE (NEGATIVE) H 06/08/23 09:26 Urine Bilirubin NEGATIVE (NEGATIVE) 06/08/23 09:26 Urine Urobilinogen 0.2 (NORMAL) E.U./dL (NORMAL) 06/08/23 09:26 Ur Leukocyte Esterase NEGATIVE (NEGATIVE) 06/08/23 09:26 Urine RBC None Seen /HPF (0-5) 06/08/23 09:26 Urine WBC 0-3 /HPF (0-5) 06/08/23 09:26 Ur Squamous Epith Cells RARE Squamous (<= Few) 06/08/23 09:26 Urine Bacteria Many /HPF (None Seen) H 06/08/23 09:26 Ur Microscopic Review INDICATED 06/08/23 09:26 Urine Culture Comments INDICATED 06/08/23 09:26 Nasal Adenovirus (PCR) NOT DETECTED 06/08/23 10:20 Nasal B. parapertussis DNA (PCR) NOT DETECTED 06/08/23 10:20 Nasal Coronavir 229E PCR NOT DETECTED 06/08/23 10:20 Nasal Coronavir HKU1 PCR NOT DETECTED 06/08/23 10:20 Nasal Coronavir NL63 PCR NOT DETECTED 06/08/23 10:20 Nasal Coronavir OC43 PCR NOT DETECTED 06/08/23 10:20 Nasal Enterovir/Rhinovir PCR NOT DETECTED 06/08/23 10:20 Nasal Influ A H1 2009 PCR DETECTED A 06/08/23 10:20 Nasal Influenza B PCR NOT DETECTED 06/08/23 10:20 Nasal Parainfluen 1 PCR NOT DETECTED 06/08/23 10:20 Nasal Parainfluen 2 PCR NOT DETECTED 06/08/23 10:20 Nasal Parainfluen 3 PCR NOT DETECTED 06/08/23 10:20 Nasal Parainfluen 4 PCR NOT DETECTED 06/08/23 10:20 Nasal RSV (PCR) NOT DETECTED 06/08/23 10:20 Nasal B.pertussis DNA PCR NOT DETECTED 06/08/23 10:20 Nasal C.pneumoniae (PCR) NOT DETECTED 06/08/23 10:20 Doug Human Metapneumo PCR NOT DETECTED 06/08/23 10:20 Nasal M.pneumoniae (PCR) NOT DETECTED 06/08/23 10:20 Nasal SARS-CoV-2 (PCR) NOT DETECTED 06/08/23 10:20
[2023-06-09] MEDS ORDERED: ESTRADIOL VG SCH (21:00)
[2023-06-09] MEDS: HYDROXYCHLOROQUINE 200 MG TABLET PO SCH (21:48)
[2023-06-10] MEDS: IPRATROPIUM/ALBUTEROL 3 ML NEB INH SCH ×5 (00:15→23:00)
[2023-06-10] MEDS: BUDESONIDE 0.5 MG/2 ML NEB INH SCH ×3 (00:15→23:00)
[2023-06-10 06:00] LABS: BASOPHILS % (AUTO) 0.1 %; HCT - HEMATOCRIT 38.7 % (37.0-47.0); HGB - HEMOGLOBIN 12.8 g/dL (12.0-16.0); LYMPHOCYTES # (AUTO) 0.6 10^3/uL (1.5-3.5); LYMPHOCYTES % (AUTO) 6.3 %; MEAN CORPUSCULAR HEMOGLOBIN 35.2 pg (27.0-31.0); MEAN CORPUSCULAR HGB CONC 33.1 g/dL (32.0-36.0); MEAN CORPUSCULAR VOLUME 106.3 fL (81.0-99.0); MEAN PLATELET VOLUME 8.6 fL (7.9-10.8); MONOCYTES # (AUTO) 0.3 10^3/uL (0.0-1.0); MONOCYTES % (AUTO) 2.6 %; NEUTROPHILS # (AUTO) 8.5 10^3/uL (1.5-6.6); NEUTROPHILS % (AUTO) 90.3 %; PLT - PLATELET COUNT 244 10^3/uL (130-450); RED BLOOD COUNT 3.64 10^6/uL (4.20-5.40); RED CELL DISTRIBUTION WIDTH 14.7 % (12.0-15.0); WHITE BLOOD COUNT 9.5 x10^3/uL (4.8-10.8)
[2023-06-10] MEDS: GABAPENTIN 300 MG CAPSULE PO SCH ×3 (06:20→21:29)
[2023-06-10] MEDS: PANTOPRAZOLE 40 MG TABLET PO SCH ×2 (06:20→16:16)
[2023-06-10] MEDS: LEVOTHYROXINE 100 MCG TABLET PO SCH (06:20)
[2023-06-10] MEDS: SODIUM CHLORIDE FLUSH 0.9% 10 ML SYRINGE IVP SCH ×3 (06:21→16:21)
[2023-06-10] MEDS: methylPREDNISolone SUCCINATE 40 MG/ML VIAL IVP SCH ×3 (06:21→21:29)
[2023-06-10 06:24] LABS: THYROID STIMULATING HORMONE 0.26 uIU/mL (0.34-5.60)
[2023-06-10 06:46] LABS: CALCIUM 9.4 mg/dL (8.5-10.3); POTASSIUM 3.2 mmol/L (3.5-4.5)
[2023-06-10] MEDS ORDERED: POTASSIUM CHLORIDE 10 MEQ CAPSULE PO ONE (08:00)
[2023-06-10] MEDS: oxyCODONE 5 MG TABLET PO PRN ×3 (08:19→22:06)
[2023-06-10] MEDS: LOSARTAN 50 MG TABLET PO SCH (08:19)
[2023-06-10] MEDS: DULoxetine 60 MG CAPSULE PO SCH (08:20)
[2023-06-10] MEDS: ACETAMINOPHEN 325 MG TABLET PO PRN ×3 (08:20→22:05)
[2023-06-10] MEDS: guaiFENesin 600 MG TABLET PO SCH ×2 (08:20→21:29)
[2023-06-10] MEDS: hydroCHLOROthiazide 25 MG TABLET PO SCH (08:21)
[2023-06-10] MEDS: OSELTAMIVIR 75 MG CAPSULE PO SCH ×2 (08:21→21:28)
[2023-06-10] MEDS: LACTOBACILLUS RHAMNOSUS GG CAPSULE PO SCH (08:21)
[2023-06-10] MEDS: ENOXAPARIN 40 MG/0.4 ML SYRINGE SUBQ SCH (08:21)
[2023-06-10] MEDS: Cyclosporine [Restasis Multidose] EACHEYE SCH ×2 (08:21→21:28)
[2023-06-10] MEDS: cefTRIAXone 1 GM in SODIUM CHLORIDE 0.9% MINIBAG 100 ML IV SCH (08:25)
--- NOTE | 2023-06-10 12:26 | PROVIDER PROGRESS NOTE ---
Assessment/Plan - Problem List (1) Acute respiratory failure with hypoxia Assessment/Plan: This is likely from a combination of influenza, bronchitis and a COPD exacerbatio. Her O2 setting has been able to be decreased slightly; on RAA at rtest but needs 1-2L w/ activity. Plan: Continue with supplemental O2 to keep saturations over 88% Treat the underlying influenza and COPD exacerbation I anticipate she may be ready for discharge tomorrow. Will do oximetry walk test on day of [facility]. Our RT Krysten has worked on which oxygen company could provide her with a portable tank to get on an airplane then have home oxygen in [place]. (2) Influenza Conclusion/Plan: Her first positive test was several days ago and she remained positive for influenza at admission Plan: Respiratory isolation to cont Cont Tamiflu, stop date has been ordered (3) COPD exacerbation Conclusion/Plan: Patient does use inhalers at home, but is not on home O2. Her CXR showed no infiltrate and Resp PCR was neg for COVID but was pos for Influenza She presented with wheezing, despite 3 nebulizers in the ER, and Solu-Medrol 125 mg IV x1. Today there wheezing of L but better air movement of R lung Plan: We will continue with supplemental O2 keeping saturations 89% or above DuoNeb scheduled 4 times daily and every 4 hours as needed Solu-Medrol was decreased last evening to 40 mg iv TID now. I anticipate discharge soon and I plan on sending her home with a Medrol Dosepak prescription Cont Pulmicort twice daily via nebulizer Cont Mucinex scheduled 600 twice daily (4) UTI (urinary tract infection) Conclusion/Plan: The patient reported she gets frequent UTIs The patient recently completed a 1 week course of antibiotics for UTI Her UA unfortunately is abnormal with positive nitrates and many WBC and ba cteria consistent with a UTI Plan: Cont empiric IV ceftriaxone daily Obtain blood cx if she spikes a fever Await urine cx results to tailor antibx She knows to see a Urologist locally after discharge (5) Rheumatoid arthritis Conclusion/Plan: As per history. The patient takes Plaquenil, azathioprine and prednisone daily. I suspect that her worsened left hip (SI joint) pain may be from a flareup, given the fact that she has aphthous ulcers of the mouth which happen when she gets an RA flareup, she reported. Plan: Cont high-dose of steroids for treating her COPD, which has helped the SI joint pain I will continue her Plaquenil and Azothioprine, as patient's own med (6) Hip pain, chronic Conclusion/Plan: She has chronic SI joint pain, it responded to her usual Percocet. Her exam in the ER was negative for straight leg raising and she has no saddle anesthesia She is on a high-dose of steroids for treating her COPD, which has helped the SI joint pain. PT evaluation was done and she had no pain and was independent. Plan: I will continue her usual pain and RA meds while she is here (7) Hypothyroidism Conclusion/Plan: all labs were reviewed. Her TSH came back excessively suppressed at 0.26, indicating excessive thyroid dosing Plan: Her Synthroid dose will be decreased from 100 mcg daily to 88 mcg daily (8) HTN (hypertension) Conclusion/Plan: Plan: Continue her usual HCTZ and her Losartan - Current Meds Current Meds: Current Medications Generic Name Dose Route Start Last Admin Trade Name Freq PRN Reason Stop Dose Admin Acetaminophen 325 mg 06/08/23 12:36 06/10/23 08:20 Acetaminophen 325 Mg Tablet PO 325 mg QID PRN Administration PAIN 5-7 Albuterol/Ipratropium 3 ml 06/08/23 15:00 06/10/23 10:39 Ipratropium/Albuterol 3 Ml Neb INH 3 ml RTQID JAQUAN Administration Albuterol/Ipratropium 3 ml 06/08/23 11:37 06/09/23 00:40 Ipratropium/Albuterol 3 Ml Neb INH 3 ml RTQID PRN Administration Shortness of Air/Wheezing Budesonide 0.5 mg 06/08/23 19:00 06/10/23 07:06 Budesonide 0.5 Mg/2 Ml Neb INH 0.5 mg RTBID JAQUAN Administration Duloxetine HCl 60 mg 06/09/23 09:00 06/10/23 08:20 Duloxetine 60 Mg Capsule PO 60 mg DAILY JAQUAN Administration Enoxaparin Sodium 40 mg 06/09/23 09:00 06/10/23 08:21 Enoxaparin 40 Mg/0.4 Ml Syringe SUBQ 40 mg DAILY JAQUAN Administration Gabapentin 600 mg 06/08/23 14:00 06/10/23 06:20 Gabapentin 300 Mg Capsule PO 600 mg TID JAQUAN Administration Guaifenesin 600 mg 06/08/23 21:00 06/10/23 08:20 Guaifenesin 600 Mg Tablet PO 600 mg BID JAQUAN Administration Hydrochlorothiazide 25 mg 06/09/23 09:00 06/10/23 08:21 Hydrochlorothiazide 25 Mg Tablet PO 25 mg DAILY JAQUAN Administration Hydroxychloroquine Sulfate 400 mg 06/08/23 21:00 06/09/23 21:48 Hydroxychloroquine 200 Mg Tablet PO 400 mg HS JAQUAN Administration Ceftriaxone Sodium 1 gm/ 100 mls @ 200 mls/hr 06/08/23 12:00 06/10/23 09:06 Sodium Chloride IV Infused DAILY JAQUAN Infusion Lactobacillus Rhamnosus 1 cap 06/09/23 10:00 06/10/23 08:21 Lactobacillus Rhamnosus Gg Capsule PO 1 cap DAILY JAQUAN Administration Losartan Potassium 100 mg 06/09/23 09:00 06/10/23 08:19 Losartan 50 Mg Tablet PO 100 mg DAILY JAQUAN Administration Methylprednisolone 40 mg 06/09/23 22:00 06/10/23 06:21 Methylprednisolone Succinate 40 Mg/Ml Vial IVP 40 mg TID JAQUAN Administration Oseltamivir Phosphate 75 mg 06/08/23 21:00 06/10/23 08:21 Oseltamivir 75 Mg Capsule PO 06/13/23 20:59 75 mg BID JAQUAN Administration Oxycodone HCl 10 mg 06/08/23 12:34 06/10/23 08:19 Oxycodone 5 Mg Tablet PO 10 mg QID PRN Administration PAIN 5-7 Pantoprazole Sodium 40 mg 06/08/23 16:00 06/10/23 06:20 Pantoprazole 40 Mg Tablet PO 40 mg BIDAC JAQUAN Administration Cyclosporine [ 1 each 06/08/23 21:00 06/10/23 08:21 Restasis Multidose] EACHEYE 1 each BID JAQUAN Administration Estradiol [Estrace] 1 each 06/09/23 21:00 06/09/23 21:49 42.5 Gm Cream VG Not Given [facility] Azathioprine 50 Mg 2 each 06/08/23 21:00 06/10/23 08:22 PO 2 each BID JAQUAN Administration Sodium Chloride 10 ml 06/08/23 17:00 06/10/23 06:21 Sodium Chloride Flush 0.9% 10 Ml Syringe IVP 10 ml 0100,0900,1700 JAQUAN Administration - Lab Result Fish Bone Diagrams: 06/10/23 05:49 06/10/23 05:49 - Additional Planning My Orders: My Active Orders 06/09/23 21:00 Patient Own Med 1 each VG MoWeFr 06/09/23 22:00 methylPREDNISolone SUCCINATE [SOLU-Medrol (40MG VIAL)] 40 mg IVP TID 06/11/23 05:00 BMP - BASIC METABOLIC PANEL [CHEM] DAILYLAB CBC - COMP BLD CT W/AUTO DIFF [HEME] DAILYLAB MAGNESIUM [CHEM] DAILYLAB 06/11/23 07:00 Levothyroxine [Synthroid] 88 mcg PO QDAC Subjective - Subjective Patient Reports: Feeling Better (Less coughing, still very short of breath with activity) Objective Vital Signs: Vital Signs - 24 hr 06/09/23 06/09/23 06/09/23 15:19 15:30 15:49 Temperature 36.5 C Heart Rate 82 Heart Rate [ 81 Brachial] Heart Rate [ 89 Supine] Respiratory 18 18 Rate Blood Pressure 127/79 [Left Brachial artery] Blood Pressure [Right Brachial artery] Blood Pressure 105/92 H [Sitting] Blood Pressure 130/98 H [Supine] O2 Saturation 94 If not protocol 1 1 : Oxygen Flow, liters/minute 06/09/23 06/09/23 06/10/23 23:30 23:50 00:15 Temperature 36.3 C L Heart Rate 71 Heart Rate [ 84 Brachial] Heart Rate [ Supine] Respiratory 18 24 Rate Blood Pressure [Left Brachial artery] Blood Pressure 128/65 [Right Brachial artery] Blood Pressure [Sitting] Blood Pressure [Supine] O2 Saturation 94 If not protocol 1 1 1 : Oxygen Flow, liters/minute 06/10/23 06/10/23 06/10/23 00:41 07:10 07:45 Temperature 36.5 C Heart Rate 81 Heart Rate [ 88 Brachial] Heart Rate [ Supine] Respiratory 17 22 Rate Blood Pressure [Left Brachial artery] Blood Pressure 163/86 H [Right Brachial artery] Blood Pressure [Sitting] Blood Pressure [Supine] O2 Saturation 92 96 If not protocol 2 1 : Oxygen Flow, liters/minute 06/10/23 10:42 Temperature Heart Rate 80 Heart Rate [ Brachial] Heart Rate [ Supine] Respiratory 17 Rate Blood Pressure [Left Brachial artery] Blood Pressure [Right Brachial artery] Blood Pressure [Sitting] Blood Pressure [Supine] O2 Saturation If not protocol 1 : Oxygen Flow, liters/minute Oxygen O2 Source Nasal cannula Oxygen Flow Rate 3 I&O (Last 24 Hrs): Intake and Output Totals x24h 06/08/23 06/09/23 06/10/23 23:59 23:59 23:59 Intake Total 930 2019 1040 Output Total 350 Balance 580 2019 1040 General: Alert, Oriented x3, No acute distress HEENT: Mucous membr. moist/pink, Other (Exophthalmos. Alopecia.) Neck: Supple, No JVD Neuro: Alert, Non Focal Cardiovascular: Regular rate, No murmurs Respiratory: No respiratory distress (at rest), Wheezes (Right-sided) Abdomen: Normal bowel sounds, Soft Extremities: No clubbing, No edema, No tenderness/swelling - Results Results: Laboratory Results WBC 9.5 x10^3/uL (4.8-10.8) 06/10/23 05:49 RBC 3.64 10^6/uL (4.20-5.40) L 06/10/23 05:49 Hgb 12.8 g/dL (12.0-16.0) 06/10/23 05:49 Hct 38.7 % (37.0-47.0) 06/10/23 05:49 MCV 106.3 fL (81.0-99.0) H 06/10/23 05:49 MCH 35.2 pg (27.0-31.0) H 06/10/23 05:49 MCHC 33.1 g/dL (32.0-36.0) 06/10/23 05:49 RDW 14.7 % (12.0-15.0) 06/10/23 05:49 Plt Count 244 10^3/uL (130-450) 06/10/23 05:49 MPV 8.6 fL (7.9-10.8) 06/10/23 05:49 Neut # (Auto) 8.5 10^3/uL (1.5-6.6) H 06/10/23 05:49 Lymph # (Auto) 0.6 10^3/uL (1.5-3.5) L 06/10/23 05:49 Baker # (Auto) 0.3 10^3/uL (0.0-1.0) 06/10/23 05:49 Eos # (Auto) 0.0 10^3/uL (0.0-0.7) 06/10/23 05:49 Baso # (Auto) 0.0 10^3/uL (0.0-0.1) 06/10/23 05:49 Absolute Nucleated RBC 0.00 x10^3/uL 06/10/23 05:49 Nucleated RBC % 0.0 /100WBC 06/10/23 05:49 Sodium 142 mmol/L (135-145) 06/10/23 05:49 Potassium 3.2 mmol/L (3.5-4.5) L 06/10/23 05:49 Chloride 103 mmol/L (101-111) 06/10/23 05:49 Carbon Dioxide 29 mmol/L (21-32) 06/10/23 05:49 Anion Gap 10.0 (6-13) 06/10/23 05:49 BUN 28 mg/dL (6-20) H 06/10/23 05:49 Creatinine 1.0 mg/dL (0.6-1.3) 06/10/23 05:49 Estimated GFR (MDRD) 55 (>89) L 06/10/23 05:49 Glucose 162 mg/dL (74-104) H 06/10/23 05:49 Lactic Acid 1.4 mmol/L (0.5-2.2) 06/08/23 08:37 Calcium 9.4 mg/dL (8.5-10.3) 06/10/23 05:49 Phosphorus 3.4 mg/dL (2.5-5.0) 06/09/23 05:43 Magnesium 1.9 mg/dL (1.7-2.3) 06/09/23 05:43 Total Bilirubin 0.5 mg/dL (0.2-1.0) 06/08/23 08:35 AST 24 IU/L (10-42) 06/08/23 08:35 ALT 19 IU/L (10-60) 06/08/23 08:35 Alkaline Phosphatase 32 IU/L (42-121) L 06/08/23 08:35 B-Natriuretic Peptide 17 pg/mL (5-100) 06/08/23 08:35 Total Protein 6.0 g/dL (6.4-8.9) L 06/08/23 08:35 Albumin 3.8 g/dL (3.2-5.5) 06/08/23 08:35 Globulin 2.2 g/dL (2.1-4.2) 06/08/23 08:35 Albumin/Globulin Ratio 1.7 (1.0-2.2) 06/08/23 08:35 Lipase 17 U/L (11-82) 06/08/23 08:35 Vitamin B12 1067 pg/mL (180-914) H 06/09/23 05:43 Folate 17.0 ng/mL (5.90 - >24.8) 06/09/23 05:43 TSH 0.26 uIU/mL (0.34-5.60) L 06/10/23 05:49 Urine Color YELLOW 06/08/23 09:26 Urine Clarity CLEAR (CLEAR) 06/08/23 09:26 Urine pH 6.5 PH (5.0-7.5) 06/08/23 09:26 Ur Specific Hendricks 1.025 (1.002-1.030) 06/08/23 09:26 Urine Protein NEGATIVE mg/dL (NEGATIVE) 06/08/23 09:26 Urine Glucose (UA) NEGATIVE mg/dL (NEGATIVE) 06/08/23 09:26 Urine Ketones NEGATIVE mg/dL (NEGATIVE) 06/08/23 09:26 Urine Occult Blood NEGATIVE (NEGATIVE) 06/08/23 09:26 Urine Nitrite POSITIVE (NEGATIVE) H 06/08/23 09:26 Urine Bilirubin NEGATIVE (NEGATIVE) 06/08/23 09:26 Urine Urobilinogen 0.2 (NORMAL) E.U./dL (NORMAL) 06/08/23 09:26 Ur Leukocyte Esterase NEGATIVE (NEGATIVE) 06/08/23 09:26 Urine RBC None Seen /HPF (0-5) 06/08/23 09:26 Urine WBC 0-3 /HPF (0-5) 06/08/23 09:26 Ur Squamous Epith Cells RARE Squamous (<= Few) 06/08/23 09:26 Urine Bacteria Many /HPF (None Seen) H 06/08/23 09:26 Ur Microscopic Review INDICATED 06/08/23 09:26 Urine Culture Comments INDICATED 06/08/23 09:26 Nasal Adenovirus (PCR) NOT DETECTED 06/08/23 10:20 Nasal B. parapertussis DNA (PCR) NOT DETECTED 06/08/23 10:20 Nasal Coronavir 229E PCR NOT DETECTED 06/08/23 10:20 Nasal Coronavir HKU1 PCR NOT DETECTED 06/08/23 10:20 Nasal Coronavir NL63 PCR NOT DETECTED 06/08/23 10:20 Nasal Coronavir OC43 PCR NOT DETECTED 06/08/23 10:20 Nasal Enterovir/Rhinovir PCR NOT DETECTED 06/08/23 10:20 Nasal Influ A H1 2009 PCR DETECTED A 06/08/23 10:20 Nasal Influenza B PCR NOT DETECTED 06/08/23 10:20 Nasal Parainfluen 1 PCR NOT DETECTED 06/08/23 10:20 Nasal Parainfluen 2 PCR NOT DETECTED 06/08/23 10:20 Nasal Parainfluen 3 PCR NOT DETECTED 06/08/23 10:20 Nasal Parainfluen 4 PCR NOT DETECTED 06/08/23 10:20 Nasal RSV (PCR) NOT DETECTED 06/08/23 10:20 Nasal B.pertussis DNA PCR NOT DETECTED 06/08/23 10:20 Nasal C.pneumoniae (PCR) NOT DETECTED 06/08/23 10:20 Doug Human Metapneumo PCR NOT DETECTED 06/08/23 10:20 Nasal M.pneumoniae (PCR) NOT DETECTED 06/08/23 10:20 Nasal SARS-CoV-2 (PCR) NOT DETECTED 06/08/23 10:20
--- NOTE | 2023-06-10 18:13 | Discharge Plan ---
Discharge Plan Problem Reviewed?: Yes Disposition: Home, Self Care Condition: Fair Prescriptions: Fluticasone/Salmeterol [Advair Hfa 115-21 Mcg Inhaler] 12 gm IH BID #1 ea Sulfamethox/Trimeth 800/160 [Bactrim Ds] 1 tablet PO BID 4 Days #8 tab predniSONE [Deltasone] 10 - 20 mg PO DAILY #30 tab guaiFENesin [Mucinex] 600 mg PO BID 5 Days #10 tab Diet: Regular Activity Restrictions: Activity as Tolerated Shower Restrictions: No Driving Restrictions: No Instruction Topics: Viral Illness Resp Tx Ch Health Concerns: You were hospitalized to treat your very low oxygen levels, caused by a COPD exacerbation, which was caused by the influenza virus. You received Tamiflu. You received nebulizers and steroids to treat your lungs. Your hip pain also improved by being on high-dose steroids. You are being discharged home today and advised to finish the course of the Tamiflu, which you already had prescribed. You are also being prescribed Advair to inhale twice a day and Mucinex to continue to break up the phlegm. Also please increase your Prednisone to 20 mg daily for the next 5 days, by taking 10 mg twice a day. After 5 days, then go back down to the 10 mg once a day dose. Since you will need more Prednisone, I ordered a prescription for some extra tablets of Prednisone 5 mg, sent to your pharmacy. We also found you to have a urinary tract infection while you were here. The bacteria that grew in the urine is E. coli, and the Bactrim was not killing that organism. That is probably why this urinary tract infection has recurred. You received IV antibiotic Ceftriaxone, which was able to kill this bacteria. You are being discharged home to take 4 more days of a different antibiotic, not your Bactrim. Please take Keflex 500 mg 4 times daily until the pills are finished. I am providing you with a copy of the report that shows the E. coli, and the antibiotics that it was sensitive to, so you can show your doctor when you get back home. You may resume all your other pre-hospital inhalers and other medications, EXCEPT we changed your thyroid dose, because your blood tests showed that the 100 mcg dose was too high. You are now prescribed to take 88 mcg daily. All these new prescriptions were electronically sent to the [facility] pharmacy in [place]. You were tested to see if you need home oxygen and you did not drop your oxygen level to need portable oxygen ordered. However, you should have wheelchair support when you travel in airports and in to enter a plane. Please see your primary care provider for a hospital follow-up visit, as soon as you get back to [place]. Plan of Treatment: As above. Care Goals: Improvement in symptoms and stabilization are the goals. Assessment: The patient understands and is agreeable with the plan. Additional Instructions or Follow Up instructions: If you have new or worsening symptoms before you return to [place] go to a Walk-In clinic or come to the ER. No Smoking: If you smoke, Please STOP! Call for help.
[2023-06-10] MEDS: HYDROXYCHLOROQUINE 200 MG TABLET PO SCH (21:29)
[2023-06-11] MEDS: SODIUM CHLORIDE FLUSH 0.9% 10 ML SYRINGE IVP SCH ×2 (00:12→10:18)
[2023-06-11] MEDS: ACETAMINOPHEN 325 MG TABLET PO PRN ×2 (03:42→11:55)
[2023-06-11] MEDS: oxyCODONE 5 MG TABLET PO PRN ×2 (03:43→11:54)
[2023-06-11 05:43] LABS: HCT - HEMATOCRIT 37.9 % (37.0-47.0); HGB - HEMOGLOBIN 12.1 g/dL (12.0-16.0); LYMPHOCYTES # (AUTO) 0.4 10^3/uL (1.5-3.5); LYMPHOCYTES % (AUTO) 6.2 %; MEAN CORPUSCULAR HEMOGLOBIN 33.8 pg (27.0-31.0); MEAN CORPUSCULAR HGB CONC 31.9 g/dL (32.0-36.0); MEAN CORPUSCULAR VOLUME 105.9 fL (81.0-99.0); MEAN PLATELET VOLUME 8.9 fL (7.9-10.8); MONOCYTES # (AUTO) 0.2 10^3/uL (0.0-1.0); MONOCYTES % (AUTO) 3.4 %; NEUTROPHILS # (AUTO) 6.3 10^3/uL (1.5-6.6); NEUTROPHILS % (AUTO) 89.3 %; PLT - PLATELET COUNT 237 10^3/uL (130-450); RED BLOOD COUNT 3.58 10^6/uL (4.20-5.40); RED CELL DISTRIBUTION WIDTH 14.5 % (12.0-15.0); WHITE BLOOD COUNT 7.1 x10^3/uL (4.8-10.8)
[2023-06-11 06:06] LABS: CALCIUM 9.3 mg/dL (8.5-10.3); CREATININE 0.9 mg/dL (0.6-1.3)
[2023-06-11] MEDS: GABAPENTIN 300 MG CAPSULE PO SCH (06:21)
[2023-06-11] MEDS: PANTOPRAZOLE 40 MG TABLET PO SCH (06:21)
[2023-06-11] MEDS: methylPREDNISolone SUCCINATE 40 MG/ML VIAL IVP SCH (06:21)
[2023-06-11] MEDS ORDERED: LEVOTHYROXINE 88 MCG TABLET PO SCH (07:00)
[2023-06-11] MEDS: IPRATROPIUM/ALBUTEROL 3 ML NEB INH SCH (07:05)
[2023-06-11] MEDS: BUDESONIDE 0.5 MG/2 ML NEB INH SCH (07:05)
--- NOTE | 2023-06-11 09:27 | DISCHARGE SUMMARY ---
Discharge Summary Admit Date: 06/08/23 Discharge Date: 06/11/23 Discharging Provider: Dr Deena Loera Primary Care Provider: in [place] Condition at Discharge: Fair Discharge Disposition: 01 Home, Self Care - HPI History of Present Illness: This is a 67-year-old female who is visiting here with her from [place]. Four days ago she went to the walk-in clinic here complaining of shortness of breath and a cough and was diagnosed with influenza, was discharged on Tamiflu. The patient has a history of rheumatoid arthritis and takes prednisone daily, and also has COPD/asthma and takes inhalers and has a history of HTN and hypothyroidism. Patient is status post multiple orthopedic surgeries and has chronic SI joint pain for which she was about to get a steroid injection and also needs Percocet. This morning the patient said her usual L hip pain was worse than normal and she could not get out of bed therefore she called EMS. She did take her own Pe rcocet. EMS documented her to be desaturating at 88% on room air. On presentation to the ER here she was wheezing. She received 3 nebulizer treatments. She was started on O2 for documented hypoxia of 82% on room air in our ER. Chest x-ray showed no infiltrates. Her respiratory PCR showed neg for COVID but continues to show (+) Influenza. Her white blood count is low at 4.3, lactic acid normal, urinalysis is abnormal with positive nitrites and many bacteria (the patient completed an 1 week course of antibiotics for UTI recently). She denies a fever or dysuria. She is about to see a Urologist back home to determine why she gets frequent UTIs. She currently has mouth ulcers which she says happens when she has a flareup of her RA. The ED provider spoke to me about this patient. She will be admitted to manage acute respiratory failure with hypoxia from Influenza, bronchitis, and COPD exacerbation. I spoke to her about her wishes for CODE BLUE status and she wants to be a Full Code. - HOSPITAL COURSE Hospital Course: (1) Acute respiratory failure with hypoxia From a combination of influenza, bronchitis and a COPD exacerbation. Her O2 setting slowly decreased with treatment. On day of discharge, she was checked with an oximetry walk test and did not need Home O2 ordered. (2) Influenza We kept her on Tamiflu. She was in respiratory isolation precautions. (3) COPD exacerbation She improved on DuoNebs, Pulmicort, Mucinex for expectoration and on iv ster oids. She was discharged to take her home Prednisone dose increased to 20 mg for 5 days, then back down to 10 mg daily, with further adjustments to be made by her medical providers in [place]. (4) E coli UTI (urinary tract infection) The patient reported she gets frequent UTIs and said she recently completed a 1 week course of Bactrim for a UTI. Her UA was abnormal and she was started on empiric Ceftriaxone. Unfortunately the E coli that grew in culture, was resi stant to Bactrim, explaining why it re-grew. At discharge, she was prescribed several more days of Keflex 500 mg QID. (5) Rheumatoid arthritis As per history. The patient takes Plaquenil, azathioprine and was on 10 mg Prednisone daily. We suspected her worsened left hip (SI joint) pain was from a flareup, given the fact that she had mild aphthous ulcers of the mouth which happen when she gets an RA flareup. The high dose steroids helped her pain alot. (6) Hip pain, chronic She has chronic SI joint pain, it responded to her usual Percocet. The high dose steroids helped her pain alot. PT evaluation was done and she had no pain and was independent. (7) Hypothyroidism Her TSH came back excessively suppressed at 0.26, indicating excessive thyroid dosing. Her Synthroid dose was decreased from 100 mcg daily to 88 mcg daily (8) HTN (hypertension) We continued her usual HCTZ and Losartan. - ALLERGIES Allergies/Adverse Reactions: Allergies Allergy/AdvReac Type Severity Reaction Status Date / Time No Known Drug Allergies Allergy Verified 06/08/23 08:17 - MEDICATIONS Home Medications: Ambulatory Orders Medication Instructions Recorded Confirmed Albuterol Sulf [Ventolin Hfa 1 - 2 puffs INH Q4HR PRN 06/08/23 06/08/23 Inhaler] Cyclosporine [Restasis Multidose] 1 drops EACHEYE BID 06/08/23 06/08/23 DULoxetine [Cymbalta] 60 mg PO DAILY 06/08/23 06/08/23 Esomeprazole Magnesium [Nexium] 40 mg PO DAILY 06/08/23 06/08/23 Estradiol [Estrace] 1 applic VG DAILY 06/08/23 06/08/23 Famotidine [Pepcid] 20 mg PO BID 06/08/23 06/08/23 Gabapentin [Neurontin] 900 mg PO TID 06/08/23 06/08/23 Hydroxychloroquine [Plaquenil] 400 mg PO HS 06/08/23 06/08/23 Levothyroxine [Synthroid] 100 mcg PO QDAC 06/08/23 06/08/23 Losartan/Hydrochlorothiazide 1 each PO DAILY 06/08/23 06/08/23 [Hyzaar 100-25 Tablet] Ondansetron Odt [Zofran Odt] 4 mg TL Q8HR PRN 06/08/23 06/08/23 Oseltamivir [Tamiflu] 75 mg PO BID 06/08/23 06/08/23 Oxycodone HCl/Acetaminophen 1 each PO QID PRN 06/08/23 06/08/23 [Percocet 10-325 mg Tablet] Rosuvastatin Calcium [Crestor] 10 mg PO DAILY 06/08/23 06/08/23 azaTHIOprine [Azathioprine] 100 mg PO BID 06/08/23 06/08/23 Acetaminophen [Tylenol] 650 mg PO Q4HR PRN tab 06/10/23 Fluticasone/Salmeterol [Advair Hfa 12 gm IH BID #1 ea 06/10/23 115-21 Mcg Inhaler] Sulfamethox/Trimeth 800/160 1 tablet PO BID 4 Days #8 tab 06/10/23 [Bactrim Ds] guaiFENesin [Mucinex] 600 mg PO BID 5 Days #10 tab 06/10/23 predniSONE [Deltasone] 10 - 20 mg PO DAILY #30 tab 06/10/23 cephALEXin [Keflex] 500 mg PO QID #16 cap 06/11/23 - PHYSICAL EXAM AT DISCHARGE General Appearance: positive: No acute distress, Alert, Other (Face flushed, has alopecia and exophthalmous.) Eyes Bilateral: positive: EOMI, Other (Exophthalmous) Neck: positive: Nml inspection, No JVD Respiratory: positive: No respiratory distress, Other (Good air mvm on L, poor air mvm on R, but no wheezing or rhonchi) Cardiovascular: positive: Regular rate & rhythm, No murmur Abdomen: positive: Non-tender, Nml bowel sounds, No distention, Other (Obese) Extremities: positive: Non-tender, No pedal edema Neurologic/Psychiatric: positive: Oriented x3, CN's nml (2-12), Motor nml - LABS Result Diagrams: 06/11/23 05:18 06/11/23 05:18 - DIAGNOSTIC IMAGING Diagnostic Imaging Results: Final report reviewed - FOLLOW UP Follow Up: See PCP after return to [facility]. - TIME SPENT Time Spent in Discharge (Minutes): 50
[2023-06-11] MEDS: cefTRIAXone 1 GM in SODIUM CHLORIDE 0.9% MINIBAG 100 ML IV SCH (10:05)
[2023-06-11] MEDS: LOSARTAN 50 MG TABLET PO SCH (10:17)
[2023-06-11] MEDS: guaiFENesin 600 MG TABLET PO SCH (10:17)
[2023-06-11] MEDS: ENOXAPARIN 40 MG/0.4 ML SYRINGE SUBQ SCH (10:17)
[2023-06-11] MEDS: Cyclosporine [Restasis Multidose] EACHEYE SCH (10:18)
[2023-06-11] MEDS: hydroCHLOROthiazide 25 MG TABLET PO SCH (10:18)
[2023-06-11] MEDS: LACTOBACILLUS RHAMNOSUS GG CAPSULE PO SCH (10:18)
[2023-06-11] MEDS: OSELTAMIVIR 75 MG CAPSULE PO SCH (10:18)
[2023-06-11 11:44] VITALS: BP 143/73; O2SAT 95
[2023-06-11] MEDS: DULoxetine 60 MG CAPSULE PO SCH (13:55)
== END 2023-06-11 13:35 | disposition home or self-care (01) | DRG 189 ==
LOC: EDUNIT# → ED 08:13 → MS2 11:34
PROVIDERS: ADMIT Internal Medicine; ATTEND Internal Medicine
DX: J10.1 Influenza due to other identified influenza virus with other respiratory manifestations (principal); J96.01 Acute respiratory failure with hypoxia; R09.02 Hypoxemia; J44.1 Chronic obstructive pulmonary disease with (acute) exacerbation; N39.0 Urinary tract infection, site not specified; E78.5 Hyperlipidemia, unspecified; Z16.29 Resistance to other single specified antibiotic; M54.9 Dorsalgia, unspecified; J11.1 Influenza due to unidentified influenza virus with other respiratory manifestations; B96.20 Unspecified Escherichia coli [E. coli] as the cause of diseases classified elsewhere; M06.9 Rheumatoid arthritis, unspecified; M53.3 Sacrococcygeal disorders, not elsewhere classified; E03.9 Hypothyroidism, unspecified; I10 Essential (primary) hypertension; M25.552 Pain in left hip; M19.90 Unspecified osteoarthritis, unspecified site; G89.29 Other chronic pain
CPT/HCPCS: 36415; 71045; 80048; 80053; 81001; 82607; 82746; 83605; 83690; 83735; 83880; 84100; 84443; 85025; 87040; 87086; 87181; 87633; 94640; 94664; 94761; 96374; 97161; 99285; A9270; J1650; J7626; 81003